=== PATIENT | female | born 1955 | race Two or more races ===

== ENCOUNTER 2024-08-29 10:54 | Outpatient (REF) | payer MEDICAID, SELFPAY ==
--- OUTSIDE RECORDS SUMMARY | 2024-08-29 11:48 | XMS_ITS | Encounter Summary ---
Author Organization [employer] Address [address] [place] [address] Care Team Providers Care [employer] Name Role Phone Unavailable Primary Care Provider Unavailabl e Reason for Visit * Reason Comments Med Refill Diabetes Encounter Details Date Type Department Care Team ([facility] st Contact Info) Description 08/29/2024 10:20 AM EDT Office Visit [facility] [address], [place] [id number] Type II diabetes mellitus with complication (CMS/HCC) (Primary Dx); Hypertension, unspecified type; Neuropathy Social History Tobacco Use Types Packs/Day Years Used Date Smoking Tobacco: Never Assessed Comments Unknown Sex and Gender Information Value Date Recorded Sex Assigned at Female 08/29/2024 9:16 AM EDT Legal Sex Female 9:14 AM EDT Gender Identity Female 08/29/2024 9:16 AM EDT Sexual Orientation Straight 08/29/2024 9: 16 AM EDT documented as of this encounter Last Filed Vital Signs Vital Sign Reading Time Taken Comments Blood Pressure 164/102 08/29/2024 10:09 AM EDT Pulse 94 08/29/2024 10:09 AM EDT Temperature 36.7 ??C (98.1 ??F) 08/29/2024 10:09 AM E DT Respiratory Rate 18 08/29/2024 10:09 AM EDT Oxygen Saturation 97% 08/29/2024 10:09 AM EDT Inhaled Oxygen Concentration - - Weight 63.7 kg (140 lb 6.4 oz) 08/29/2024 10:09 AM EDT Height - - Body Mass Index - - documented in this encounter Plan of Treatment Scheduled Orders Name Type Priority Associated Diagnoses Orde r Schedule Comprehensive Metabolic Panel Lab Routine Type II diabetes mellitus with complication ([facility]) Hypertension, unspecified type Expected: 08/29/2024 (Approximate), Expires: 08/29/2025 CBC auto differential Lab Routine Type II diabetes mellitus with complication ([facility]) Hypertension, unspecified type Expected: 08/29/2024 (Approximate), Expires: 08/29/2025 Hemoglobin A1c Lab Routine Type II diabetes mellitus with complication ([facility]) Hypertension, unspecified type Expected: 08/29/2024 (Approximate), Expires: 08/29/2025 documented as of this encounter Procedures Procedure Name Priority Date/Time Associated Diagnosis Comments POCT GLYCATED HEMOGLOBIN, TOTAL Routine 08/29/2024 10:39 AM EDT Type II diabetes mellitus with complication ([facility]) POCT GLUCOSE Routine 08/29/2024 10:39 AM EDT Type II diabetes mellitus with complication ([facility]) documented in this encounter Results * (ABNORMAL) POCT glucose manually resulted (08/29/2024 10:39 AM EDT) Glucose Blood, POC 500(A) 60 - 200 mg/dL Comment:[facility] Blood Capillary blood specimen / Unknown 08/29/2024 10:39 AM EDT us Kamini Macias NP POINT OF CARE TEST ENTER/EDIT OR DERABLES Final Result * (ABNORMAL) POCT A1C (08/29/2024 10:39 AM EDT) Hemoglobin A1C 12.4(A) 4.0 - 6.0 % Swab 08/29/2024 10:3 9 AM EDT us Kamini Macias NP POINT OF CARE TEST ENTER/EDIT OR DERABLES Final Result documented in this encounter Visit Diagnoses Diagnosis Type II diabetes mellitus with complication ([facility])- Primary Type II or unspecified type diabetes mellitus with unspecified complication, not stated as uncontrolled Hypertension, unspecified type Neuropathy Mononeuritis of unspecified site documented in this encounter
[2024-08-29 13:53] LABS: MANUAL DIFF FLAG NO
[2024-08-29 13:59] LABS: Basophils Absolute Auto 0.1 X10*3/uL (0.0-0.2); Basophils Percent Auto 1.2 % (0-2); Eosinophils Absolute Auto 0.2 X10*3/uL (0.0-0.4); Eosinophils Percent Auto 3.7 % (0-4); Hematocrit 31.8 % (37.0-47.0); Hemoglobin 10.2 g/dl (12.0-16.0); Imm Gran Abs Auto 0.01 X10*3/uL (0.00-0.03); Imm Gran Pct Auto 0.2 % (0.0-0.4); Lymphocytes Absolute Auto 1.3 X10*3/uL (1.2-4.9); Mean Corpuscular HGB Conc 32.1 g/dl (31.0-35.0); Mean Corpuscular Hemoglobin 22.8 pg (27.0-33.0); Mean Corpuscular Volume 71.1 fL (80.0-98.0); Monocytes Absolute Auto 0.4 X10*3/uL (0.1-1.2); Monocytes Percent Auto 7.4 % (2-11); Neutrophils Absolute Auto 3.2 x10*3/uL (2.0-8.3); Neutrophils Percent Auto 62.5 % (45-73); Platelet Count 204 X10*3/uL (160-400); Red Blood Count 4.47 X10*6/uL (4.20-5.50); Red Cell Distribution Width 17.5 % (11.0-16.0); White Blood Count 5.1 X10*3/uL (4.8-10.8)
[2024-08-29 14:11] LABS: Alanine Aminotransferase 23 U/L (0-31); Albumin Level 3.7 g/dL (3.5-5.0); Alkaline Phosphatase 188 U/L (39-117); Anion Gap 13 (12-20); Aspartate Amino Transferase 21 U/L (5-31); Bilirubin Total 0.4 mg/dL (0.0-1.0); Blood Urea Nitrogen 10 mg/dL (9-16); Calcium 9.7 mg/dL (8.4-10.2); Carbon Dioxide 25 mmol/L (22-29); Chloride 102 mmol/L (96-108); Estimated Average Glucose 312 mg/dL; Estimated Glomerular Filt Rate > 60; Hemoglobin A1c % 12.5 % (<6.0); Potassium 4.7 mmol/L (3.3-5.1); Sodium 135 mmol/L (135-145); Total Protein 7.1 g/dL (6.5-8.0)
[2024-08-29 14:13] LABS: Glucose Random 427 mg/dL (60-115)
== END 2024-08-29 10:55 | disposition home or self-care (01) ==
LOC: HO.HHCL 10:54
PROVIDERS: Visit Provider Nurse Practitioner Family
DX: E11.8 Type 2 diabetes mellitus with unspecified complications (principal); I10 Essential (primary) hypertension
CPT/HCPCS: 36415; 80053; 83036; 85025